=== PATIENT | male | born 1990 | race Two or more races ===

== ENCOUNTER 2016-07-11 11:21 | Emergency (ER) | payer SELFPAY ==
[~2016-07-11] VITALS: Ht 162.6 cm; Wt 68.0 kg
[2016-07-11 11:37] VITALS: BP 126/71
[2016-07-11] MEDS ORDERED: ERYT1OIN6 EACHEYE (11:42)
--- NOTE | 2016-07-11 11:42 | PHYS DOC ---
Past Medical History Past Medical History: No Pertinent History Past Surgical History: No Surgical History Alcohol Use: Occasionally Drug Use: None Adult General Chief Complaint Chief Complaint: EYE PROBLEMS [facility] HPI This is a 25-year-old male who presents with some left eye pain and foreign body sensation after he states on Tuesday he was working on a roof and felt some rex debris hit his eye. He now states every time he blinks he feels for body sensation significant pain in the left eye with some noted tearing upon initial assessment. He does have some mild injection of the conjunctiva on that side. He denies any visual disturbance. He denies any contact lens use. Review of Systems Review of Systems Constitutional: Denies fever or chills [] Eyes: Denies change in visual acuity, has redness, has eye pain [] HENT: Denies nasal congestion or sore throat [] Respiratory: Denies cough or shortness of breath [] Cardiovascular: No additional information not addressed in HPI [] GI: Denies abdominal pain, nausea, vomiting, bloody stools or diarrhea [] : Denies dysuria or hematuria [] Musculoskeletal: Denies back pain or joint pain [] Integument: Denies rash or skin lesions [] Neurologic: Denies headache, focal weakness or sensory changes [] Endocrine: Denies polyuria or polydipsia [] Current Medications Current Medications Current Medications Medications (Trade) Dose Ordered Sig/Juliet Start Time Stop Time Status Last Admin Dose Admin Fluorescein Sodium (Ful-Reina) 1 strip 1X ONCE 07/11/16 12:30 07/11/16 12:30 DC 07/11/16 11:53 1 STRIP Tetracaine HCl (Tetracaine) 1 drop 1X ONCE 07/11/16 12:30 07/11/16 12:30 DC 07/11/16 11:53 1 DROP Allergies Allergies Allergies Coded Allergies Type Severity Reaction Last Updated Verified No Known Drug Allergies 07/11/16 No Physical Exam Physical Exam Constitutional: Well developed, well nourished, no acute distress, non-toxic appearance. [] HENT: Normocephalic, atraumatic, bilateral external ears normal, oropharynx moist, no oral exudates, nose normal. [] Eyes: PERRLA, EOMI, conjunctiva injected on right, no discharge, no obvious foreign body, Wood's Lamp exam shows small corneal abrasion. [] Neck: Normal range of motion, no tenderness, supple, no stridor. [] Cardiovascular:Heart rate regular rhythm, no murmur [] Lungs & Thorax: Bilateral breath sounds clear to auscultation [] Abdomen: Bowel sounds normal, soft, no tenderness, no masses, no pulsatile masses. [] Skin: Warm, dry, no erythema, no rash. [] Back: No tenderness, no CVA tenderness. [] Extremities: No tenderness, no cyanosis, no clubbing, ROM intact, no edema. [] Neurologic: Alert and oriented X 3, normal motor function, normal sensory function, no focal deficits noted. [] Psychologic: Affect normal, judgement normal, mood normal. [] Current Patient Data Vital Signs Vital Signs Date Time Temp Pulse Resp B/P Pulse Ox O2 Delivery O2 Flow Rate FiO2 07/11/16 11:37 98.0 78 16 98 Room Air 98.0 EKG EKG [] Radiology/Procedures Radiology/Procedures [] Course & Med Decision Making Course & Med Decision Making Pertinent Labs and Imaging studies reviewed. (See chart for details) 25-year-old male who has noted corneal abrasions to his right eye on Wood's lamp exam and will be discharged with a course of erythromycin eye ointment to be applied 3 times a day for the next 5 days with strict instructions to continue to use eye protection while at work and to use normal saline drops to the eyes well.My exam did not reveal any obvious foreign body underneath the eyelids. Tetracaine was administered with fluoroscein dye and Q-tip was used to explore the inner eyelids. Upon my final reassessment, the patient feels much improved and states the foreign object sensation has lessened. His visual acuity was checked and he had excellent acuity. Dragon Disclaimer Dragon Disclaimer This electronic medical record was generated, in whole or in part, using a voice recognition dictation system. Departure Departure Impression: Primary Impression: Corneal abrasion Disposition: 01 HOME, SELF-CARE Admitting Physician: Other Condition: STABLE Referrals: NO PCP (PCP) Patient Instructions: Eye - Corneal Abrasion Additional Instructions: Please use your antibiotic ointment to the eye as prescribed. Continue using normal saline drops to each eye. Please wear eye protection when working and avoid doing any activities that could harm your eye. Return to the ER in the next 3-5 days if your symptoms don't improve or your vision should worsen. Scripts Erythromycin Base (Erythromycin)3.5 Gm Oint...g.1 Jordan SPEEDY QIDPRN #3.5 GM For 5 days Prov:REENA BELL DO 07/11/16 REENA BELL DO Jul 11, 2016 11:42
[2016-07-11] MEDS ORDERED: TETRACAINE 0.5% OPHTH SOLUTION 4ML BOTTLE. ONE (11:43)
[2016-07-11] MEDS ORDERED: FLUORESCEIN OPHTH TEST STRIP. ONE (11:46)
[2016-07-11] MEDS ORDERED: TETRACAINE 0.5% OPHTH SOLUTION 4ML BOTTLE. OS ONE (12:30)
[2016-07-11] MEDS ORDERED: FLUORESCEIN OPHTH TEST STRIP. OS ONE (12:30)
== END 2016-07-11 12:17 | disposition home or self-care (01) ==
LOC: ER 11:21
DX: S05.02XA Injury of conjunctiva and corneal abrasion without foreign body, left eye, initial encounter (principal); W22.8XXA Striking against or struck by other objects, initial encounter; Y93.89 Activity, other specified; Y99.8 Other external cause status; Y92.89 Other specified places as the place of occurrence of the external cause
CPT/HCPCS: 99283

== ENCOUNTER 2021-08-16 09:40 | Emergency (ER) | payer SELFPAY ==
[~2021-08-16] VITALS: Ht 167.6 cm; Wt 80.0 kg
[~2021-08-16 09:40] MED LIST: ERYT1OIN3 EACHEYE
[2021-08-16 09:50] VITALS: BP 133/89
[2021-08-16] MEDS ORDERED: CETI10TA74 PO (10:44)
[2021-08-16] MEDS ORDERED: TRIA15CR TP (10:44)
[2021-08-16] MEDS ORDERED: PERM60CR12 TP (10:44)
--- NOTE | 2021-08-16 10:44 | PHYS DOC ---
Past Medical History Past Medical History: No Pertinent History Past Surgical History: No Surgical History Smoking Status: Never Smoker Alcohol Use: Occasionally Drug Use: None General Adult EDM: Chief Complaint: SKIN RASH/ABSCESS HPI: HPI: Patient is a 31-year-old male who presents to the emergency department complaining of skin rash with itching for the past 8 days. Patient states he woke up and noticed a rash on his hands that he described as burning with itching, reports rash has progressed to his waistline, lower legs, and arms. Patient denies rash on his trunk. Patient states his rash is on his head and was on his face earlier this week but seems to have resolved. Patient reports some relief with nuvy-izl-jwquwya anti-itch cream, hydrocortisone cream, states erpy-suu-emaxlgy Benadryl seems to help the most. Has not found relief with the use of calamine lotion. Reports his last tetanus immunization was less than 5 years ago. Denies other people living in his home with similar symptoms. Denies fever or chills. Denies nausea, vomiting, diarrhea. Patient denies other physical complaints or physical concerns. Review of Systems: Review of Systems: 14 body systems of review of systems have been reviewed. See HPI for pertinent positives and negative responses, otherwise all other systems are negative, nonpertinent or noncontributory. Constitutional: Negative except as outlined in HPI above. Skin: Negative except as outlined in HPI above. Eyes: Negative except as outlined in HPI above. HENT: Negative except as outlined in HPI above. Respiratory: Negative except as outlined in HPI above. Cardiovascular: Negative except as outlined in HPI above. GI: Negative except as outlined in HPI above. : Negative except as outlined in HPI above. Musculoskeletal: Negative except as outlined in HPI above. Integument: Negative except as outlined in HPI above. Neurologic: Negative except as outlined in HPI above. Endocrine: Negative except as outlined in HPI above. Lymphatic: Negative except as outlined in HPI above. Psychiatric: Negative except as outlined in HPI above. Heart Score: C/O Chest Pain: No Risk Factors: Risk Factors: DM, Current or recent (<one month) smoker, HTN, HLP, family history of CAD, obesity. Risk Scores: Score 0 - 3: 2.5% MACE over next 6 weeks - Discharge Home Score 4 - 6: 20.3% MACE over next 6 weeks - Admit for Clinical Observation Score 7 - 10: 72.7% MACE over next 6 weeks - Early Invasive Strategies Allergies: Allergies: Allergies Coded Allergies Type Severity Reaction Last Updated Verified No Known Drug Allergies 08/16/21 No Physical Exam: PE: Constitutional: Well developed, well nourished, no acute distress, non-toxic appearance. 31-year-old male in no apparent distress. HENT: Normocephalic, atraumatic. Eyes: Conjunctiva normal, no discharge. Neck: Normal range of motion, no stridor. Cardiovascular: No cyanosis appreciated, distal cap refill less than 2 seconds. Lungs & Thorax: Patient is in no respiratory distress, no audible adventitious lung sounds appreciated. Abdomen: Nontender, no abnormalities noted. Skin: Warm, dry, no erythema, patient has maculopapular rash along with the fingers laterally, wrists, antecubital fossa skin surfaces bilaterally, around waist line, bilateral lower extremities, scalp, the trunk and face and anterior neck are spared. Back: No tenderness, no deformities. Extremities: No tenderness, no cyanosis, no clubbing, ROM intact, no edema. Neurologic: Alert and oriented X 3, normal motor function, normal sensory function, no focal deficits noted. Psychologic: Affect normal, judgement normal, mood normal. ] Current Patient Data: Vital Signs: Vital Signs Date Time Temp Pulse Resp B/P (MAP) Pulse Ox O2 Delivery O2 Flow Rate FiO2 08/16/21 09:50 98.0 102 16 133/89 (104) 98 Room Air 98.0 EKG: EKG: [] Radiology/Procedures: Radiology/Procedures: [] Course & Med Decision Making: Course & Med Decision Making Pertinent Labs and Imaging studies reviewed. (See chart for details) 31-year-old male, vital signs reviewed, presents to the emergency department concerning rash for the past 8 days. Physical examination is concerning for scabies infection, will treat with Rx permethrin cream. Patient does report onset after sitting on friend's couch. I did consider and could not exclude insect bites, flea bites, bedbugs, atopic or contact dermatitis, there is a low suspicion tinea process. We will also treat with triamcinolone cream. Discussed with patient may continue using Zyrtec at night for seasonal allergies, Benadryl for breakthrough itching. Discussed washing clothing and bed linen care for scabies infection. Will give information for area healthcare clinics and physicians as patient does not have primary care, will give dermatology recommendation. Discussed all prescription medications and side effects with patient, home care, return to ER precautions or concerns were reviewed, patient gave verbal understanding of and is amenable to ED discharge planning. Discussed with the patient all findings and diagnostic testing as well as the need to follow-up with their primary care provider for further evaluation and treatment or return to the ED if any new or worsening symptoms. Strict return precautions were also discussed at length, the patient voiced understanding and agreement with the discharge planning. The patient was nontoxic in appearance, in no apparent distress, and hemodynamically stable at the time of disposition. Workday Disclaimer: Workday Disclaimer: This electronic medical record was generated, in whole or in part, using a voice recognition dictation system. Departure Departure Impression: Primary Impression: Skin rash Disposition: HOME / SELF CARE / HOMELESS Condition: GOOD Referrals: NO PCP (PCP) Patient Instructions: Bedbugs, Scabies Additional Instructions: You were seen today in the emergency department for a skin rash that you have had for the past 8 days. Your physical examination was concerning for a scabies infection. As we discussed I am starting you on a medication to help with your symptoms. There is of permethrin cream that you should apply in the evening to all affected areas, please do not get into your eyes or mouth. You will have a refill of this prescription, please repeat in 1 week. Leave on overnight and shower off in the morning time. You may consider washing your clothing and bed linens used within the past 3 to 4 days in hot water and soap, then place into a large plastic bag and seal for the next 3 to 5 days. I am also prescribing you a anti-itch cream that you may use to the affected areas. You may continue taking your Zyrtec at night, you may use your mhmx-axi-xigsjxj Benadryl/allergy medication as needed for breakthrough itching. I have attached a list of area healthcare providers and health clinics for you to establish primary care with please establish primary care soon. I have also recommended a consular officer for you to follow-up with if symptoms do not resolve soon. Thank you for visiting our Emergency Department. It was a pleasure taking care of you today in the emergency department and we appreciate you trusting us with your care. If any additional problems come up don't hesitate to return to visit us. Please follow up with your primary care provider so they can plan additional care if needed and know about the problem that you had. If symptoms worsen come back to the Emergency Department. Any concerning symptoms that start such as chest pain, shortness of air, weakness or numbness on one side of the body, running high fevers or any other concerning symptoms return to the ER. [facility] [place] [address] [place] [address] Dermatology: [phone] [facility] [address] [place] [address] [facility] [address] [place] [address] [facility] [address] [facility] [place] [address] [facility] [address] [place] [address] [facility] [address] [place] [address] [facility] [address] [place] [address] [facility] [address] [place] [address] [facility] [address] [place] [address] [facility] [address] [place] [address] [facility] [address] [place] [address] Scripts Triamcinolone Acetonide (TRIAMCINOLONE ACETONIDE 0.5% CREAM) 15 Gm Cream..g. 1 JUANITA TP BID for skin rash, #30 GM 0 Refills Prov: JARRETT JONES APRN 08/16/21 Cetirizine Hcl (ZYRTEC) 10 Mg Tablet 1 TAB PO DAILY, #30 TAB 2 Refills Prov: JARRETT JONES APRN 08/16/21 Permethrin (PERMETHRIN) 60 Gm Cream..g. 1 JUANITA TP ONCE for skin rash, #60 GM 1 Refill Apply to all affected areas in the evening, do not apply near eyes or mouth, rinse off in the morning, repeat in 1 to 2 weeks. Prov: JARRETT JONES APRN 08/16/21 JARRETT JONES APRN Aug 16, 2021 10:44
[2021-08-16] MEDS ORDERED: FLUORESCEIN OPHTH TEST STRIP. ONE (20:23)
[2021-08-16] MEDS ORDERED: TETRACAINE 0.5% OPHTH SOLUTION 4ML BOTTLE. ONE (20:23)
[2021-08-16] MEDS ORDERED: IBUPROFEN 400 MG TABLET. PO ONE (21:01)
[2021-08-16] MEDS ORDERED: DIPHTH,PERTUSS(ACELL),TET TOX 0.5 ML DISP.SYRIN. VAX IM ONE (21:01)
[2021-08-16] MEDS ORDERED: ERYTHROMYCIN 0.5% OPHTH OINTMENT 1GM TUBE. ONE (21:01)
== END 2021-08-16 11:08 | disposition home or self-care (01) ==
LOC: ER 09:40
DX: R21 Rash and other nonspecific skin eruption (principal)
CPT/HCPCS: 99283